=== PATIENT | female | born 1985 | race Caucasian/White ===

== ENCOUNTER 2019-03-14 06:26 | Day surgery (SDC) | payer MEDICAID ==
[~2019-03-14] VITALS: Ht 160 cm; Wt 85.1 kg
[~2019-03-14 06:26] MED LIST: IBUP-1986 PO; ONDA4TAB12 PO
[2019-03-14 06:34] VITALS: BP 134/98
[2019-03-14] MEDS ORDERED: OMEP20CA11 PO (06:37)
[2019-03-14] MEDS ORDERED: PROM25TA14 PO (06:38)
[2019-03-14] MEDS ORDERED: ONDA8TAB6 PO (06:38)
[2019-03-14] MEDS ORDERED: fentaNYL/PF 50MCG/1 ML 2ML syringe ONE (06:48)
[2019-03-14] MEDS ORDERED: MIDAZolam 5mg/5ml vial ONE (06:49)
[2019-03-14] MEDS ORDERED: LIDOcaine Viscous 15ml cup ONE (06:49)
[2019-03-14 08:19] VITALS: BP 138/63
[2019-03-14 08:29] VITALS: BP 110/70
[2019-03-14 08:39] VITALS: BP 105/57
[2019-03-14 08:49] VITALS: BP 140/85
== END 2019-03-14 09:00 | disposition home or self-care (01) ==
LOC: GI LAB 06:26
PROVIDERS: ATTEND Internal Medicine Gastroenterology
DX: K29.50 Unspecified chronic gastritis without bleeding (principal); Z88.8 Allergy status to other drugs, medicaments and biological substances; Z87.891 Personal history of nicotine dependence
CPT/HCPCS: 43239; 99152; J2250; J3010; J7040; A4620

== ENCOUNTER 2022-01-13 15:44 | Emergency (ER) | payer MEDICAID ==
[~2022-01-13] VITALS: Ht 160 cm; Wt 95.5 kg
[~2022-01-13 15:44] MED LIST changes: -IBUP-1986 PO; +OMEP20CA15 PO; -ONDA4TAB12 PO; +ONDA8TAB6 PO; +PROM25TA14 PO
[2022-01-13 16:33] LABS: BASOPHILS % (AUTO) 0.7 % (0-1); EOSINOPHILS # (AUTO) 0.2 X10'3 (0-0.9); EOSINOPHILS % (AUTO) 2.5 % (0-6); HEMATOCRIT 37.9 % (35.0-45.0); HEMOGLOBIN 12.6 g/dl (12.0-16.0); LYMPHOCYTES % (AUTO) 15.2 % (21-51); MEAN CORPUSCULAR HGB CONC 33.2 g/dL (33.0-36.5); MEAN CORPUSCULAR VOLUME 90.4 FL (78-98); MONOCYTES # (AUTO) 0.5 X10'3 (0-0.9); MONOCYTES % (AUTO) 7.8 % (2-12); NEUTROPHILS # (AUTO) 4.8 X10'3 (1.8-7.7); NEUTROPHILS % (AUTO) 73.8 % (42-75); PLATELET COUNT 182 X10'3 (140-440); RED CELL DISTRIBUTION WIDTH 12.3 % (11.5-14.5); WHITE BLOOD COUNT 6.5 X10'3 (4.5-11.0)
[2022-01-13 16:46] LABS: ALANINE AMINOTRANSFERASE 173 U/L (12-78); ALBUMIN 3.4 G/DL (3.4-5.0); ALBUMIN/GLOBULIN RATIO 1.1 (1.1-1.5); ALKALINE PHOSPHATASE 89 IU/L (46-116); ANION GAP 4 (8-16); ASPARTATE AMINO TRANSFERASE 91 U/L (10-37); BILIRUBIN,TOTAL 0.2 MG/DL (0.1-1.0); BLOOD UREA NITROGEN 15 MG/DL (7-18); BUN/CREATININE RATIO 16.9 (6.6-38.0); CALCIUM 8.7 MG/DL (8.5-10.1); CHLORIDE 109 MMOL/L (99-107); CREATININE 0.89 MG/DL (0.40-0.90); GLUCOSE 101 MG/DL (70-104); POTASSIUM 4.4 MMOL/L (3.5-5.1); SODIUM 144 MMOL/L (135-145); TOTAL CARBON DIOXIDE 30.9 MMOL/L (24-32); TOTAL PROTEIN 6.5 G/DL (6.4-8.2); eGFR 72 ML/MIN
[2022-01-13 17:00] LABS: CLARITY,URINE CLOUDY (Clear); COLOR,URINE YELLOW (Yellow); GLUCOSE, URINE NEGATIVE (Neg); KETONES,URINE NEGATIVE (Neg); LEUKOCYTE ESTERASE ,URINE TRACE (Neg); NITRITES, URINE NEGATIVE (Neg); OCCULT BLOOD,URINE NEGATIVE (Neg); PH,URINE 7.5 (4.8-8.0); PROTEIN,URINE NEGATIVE (Neg); URINE HCG NEGATIVE (NEG); UROBILINOGEN,URINE 0.2 E.U/dL (0.2-1.0)
[2022-01-13 17:07] LABS: UA COLLECTION TYPE CLN CATCH MIDSTREAM
[2022-01-13 17:17] LABS: AMORPHOUS PHOSPHATES 3+; SQUAMOUS EPITHELIAL CELL,UR MANY /LPF (FEW)
[2022-01-13 17:19] LABS: RBC,URINE NONE SEEN /HPF (0-2)
[2022-01-13 17:21] LABS: BACTERIA,URINE NONE SEEN /HPF (Neg); WBC,URINE 0-4 /HPF (0-4)
[2022-01-13] MEDS ORDERED: POTASSIUM BICARB 20meq eff tab 20 MEQ TABLET.EFF PO ONE (20:05)
[2022-01-13] MEDS ORDERED: furosemide 20MG tablet PO ONE (20:05)
[2022-01-13 20:30] VITALS: BP 138/88
== END 2022-01-13 20:33 | disposition home or self-care (01) ==
LOC: ER 15:44
DX: R60.0 Localized edema (principal); R63.5 Abnormal weight gain; Z88.1 Allergy status to other antibiotic agents; Z79.899 Other long term (current) drug therapy
CPT/HCPCS: 36415; 71045; 80053; 81001; 81025; 83880; 84439; 84443; 84484; 85025; 93005; 99285

== ENCOUNTER 2022-02-03 09:24 | Emergency (ER) | payer MEDICAID, OTHER ==
[2022-02-03] VITALS (11 sets, daily range): BP systolic 127–164; BP diastolic 70–101
[~2022-02-03] VITALS: Ht 160 cm; Wt 97.7 kg
[2022-02-03 09:54] LABS: BASOPHILS % (AUTO) 0.9 % (0-1); EOSINOPHILS # (AUTO) 0.3 X10'3 (0-0.9); EOSINOPHILS % (AUTO) 5.7 % (0-6); HEMATOCRIT 40.4 % (35.0-45.0); HEMOGLOBIN 13.5 g/dl (12.0-16.0); LYMPHOCYTES # (AUTO) 1.3 X10'3 (1.1-4.8); MEAN CORPUSCULAR HGB CONC 33.5 g/dL (33.0-36.5); MEAN CORPUSCULAR VOLUME 89.7 FL (78-98); MONOCYTES # (AUTO) 0.4 X10'3 (0-0.9); MONOCYTES % (AUTO) 7.6 % (2-12); NEUTROPHILS # (AUTO) 3.1 X10'3 (1.8-7.7); NEUTROPHILS % (AUTO) 60.8 % (42-75); PLATELET COUNT 190 X10'3 (140-440); RED CELL DISTRIBUTION WIDTH 12.7 % (11.5-14.5); WHITE BLOOD COUNT 5.2 X10'3 (4.5-11.0)
[2022-02-03 10:10] LABS: ALANINE AMINOTRANSFERASE 41 U/L (12-78); ALBUMIN 3.9 G/DL (3.4-5.0); ALBUMIN/GLOBULIN RATIO 1.3 (1.1-1.5); ALKALINE PHOSPHATASE 75 IU/L (46-116); ANION GAP 9 (8-16); ASPARTATE AMINO TRANSFERASE 24 U/L (10-37); BILIRUBIN,TOTAL 0.5 MG/DL (0.1-1.0); BLOOD UREA NITROGEN 15 MG/DL (7-18); BUN/CREATININE RATIO 15.6 (6.6-38.0); CALCIUM 8.6 MG/DL (8.5-10.1); CHLORIDE 107 MMOL/L (99-107); CREATININE 0.96 MG/DL (0.40-0.90); GLUCOSE 96 MG/DL (70-104); LIPASE 111 U/L (73-393); SODIUM 145 MMOL/L (135-145); TOTAL CARBON DIOXIDE 29.4 MMOL/L (24-32); TOTAL PROTEIN 6.9 G/DL (6.4-8.2); eGFR 66 ML/MIN
[2022-02-03 10:12] LABS: POTASSIUM 4.8 MMOL/L (3.5-5.1)
[2022-02-03] MEDS ORDERED: ondansetron/PF 4mg/2ml inj IV PRN ×2 (12:10→15:10)
[2022-02-03] MEDS ORDERED: HYDROcodone/acetaminophen 10/325mg tab PO PRN (12:10)
[2022-02-03] MEDS ORDERED: acetaminophen 325mg tablet PO PRN ×2 (12:10)
[2022-02-03] MEDS ORDERED: normal saline 1000ml 1,000 ML IV SCH (12:10)
[2022-02-03] MEDS ORDERED: HYDROcodone/acetaminophen 5mg/325mg tablet PO PRN (12:10)
[2022-02-03] MEDS ORDERED: magnesium Cl slow-release 64mg tablet PO PRN (12:10)
[2022-02-03] MEDS ORDERED: potassium CL 10mEq/100ml bag 100 ML IV PRN (12:10)
[2022-02-03] MEDS ORDERED: morphine 2 MG/ML inj. syringe IV PRN ×3 (12:10→15:10)
[2022-02-03] MEDS ORDERED: magnesium 2GM in 50ml NS 50 ML IV PRN (12:10)
[2022-02-03] MEDS ORDERED: POTASSIUM BICARB 20meq eff tab 20 MEQ TABLET.EFF PO PRN ×2 (12:10)
[2022-02-03] MEDS ORDERED: magnesium hydroxide 30ml (MOM) UD suspension PO PRN (12:10)
[2022-02-03] MEDS ORDERED: magnesium 4gm in 100ml NS 100 ML IV PRN (12:10)
[2022-02-03] MEDS ORDERED: mag hydrox/Alum hydrox/simeth 30ml oral suspension PO PRN (12:10)
[2022-02-03] MEDS ORDERED: piperacillin/tazo 3.375gm/50ml 50 ML IV SCH ×2 (12:16→12:19)
[2022-02-03] MEDS ORDERED: NO HOME MEDS (13:17)
[2022-02-03 13:27] LABS: URINE HCG NEGATIVE (NEG)
[2022-02-03 13:29] LABS: CLARITY,URINE CLEAR (Clear); COLOR,URINE YELLOW (Yellow); GLUCOSE, URINE NEGATIVE (Neg); KETONES,URINE NEGATIVE (Neg); LEUKOCYTE ESTERASE ,URINE NEGATIVE (Neg); NITRITES, URINE NEGATIVE (Neg); OCCULT BLOOD,URINE SMALL (Neg); PH,URINE 6.5 (4.8-8.0); PROTEIN,URINE NEGATIVE (Neg); UROBILINOGEN,URINE 0.2 E.U/dL (0.2-1.0)
[2022-02-03 13:30] LABS: UA COLLECTION TYPE CLN CATCH MIDSTREAM
[2022-02-03 13:36] LABS: BACTERIA,URINE FEW /HPF (Neg); SQUAMOUS EPITHELIAL CELL,UR FEW /LPF (FEW); WBC,URINE 0-4 /HPF (0-4)
[2022-02-03] MEDS ORDERED: INDOCYANINE GREEN 25 MG/10 ML VIAL IV STA (13:49)
[2022-02-03] MEDS ORDERED: ceFAZolin 2gm in dextrose, iso 100 ML IV ONE (13:50)
[2022-02-03] MEDS ORDERED: ringers solution, lacted 1,000 ML IV SCH ×2 (13:50→15:10)
--- NOTE | 2022-02-03 14:24 | NUR ---
Richar moore from pharmacy as surgery was picking up the patient, given to Dean SOFTWARE APPLICATIONS SPECIALIST. Recovery made aware.
[2022-02-03] MEDS ORDERED: LIDOcaine 1% 30ml preserv. free vial ONE (15:04)
[2022-02-03] MEDS ORDERED: BUPIVAcaine 0.5% inj/PF 30 ML ONE (15:04)
[2022-02-03] MEDS ORDERED: morphine 4 MG/ML inj SYRINge IV PRN (15:10)
[2022-02-03] MEDS ORDERED: meperidine/PF 25mg/ml syringe IV PRN ×3 (15:10)
[2022-02-03] MEDS ORDERED: proCHLORperazine 10 MG/2 ml inj IV PRN (15:10)
[2022-02-03] MEDS ORDERED: fentaNYL/PF 50MCG/1 ML 2ML syringe ONE (15:18)
[2022-02-03] MEDS ORDERED: midazolam 1 mg/ML 2ml injection ONE (15:18)
[2022-02-03] MEDS ORDERED: rocuronium 10mg/ml inj IV ONE (15:19)
[2022-02-03] MEDS ORDERED: propofol inj 20 ML IV ONE (15:19)
[2022-02-03] MEDS ORDERED: sevoflurane 250ml liquid IH ONE (15:32)
[2022-02-03] MEDS ORDERED: BUPIVAcaine 0.5% inj/PF 30 ml vial IJ ONE (16:14)
[2022-02-03] MEDS ORDERED: dexamethasone sod phosphate 4mg/ml inj. ONE (16:27)
[2022-02-03] MEDS ORDERED: ondansetron/PF 4mg/2ml inj ONE (16:27)
[2022-02-03] MEDS ORDERED: glycopyrrolate 0.2mg/ml inj ONE (16:31)
[2022-02-03] MEDS ORDERED: neostigmine methylsulfate 1 MG/ML 10ml vial ONE (16:31)
[2022-02-03] MEDS ORDERED: oxyCODONE/APAP 5-325mg tablet PO PRN (16:50)
--- NOTE | 2022-02-03 16:50 | NUR ---
PT ARRIVED TO [facility] VIA [facility] ACCOMPANIED BY DR. AGUILAR- ANESTHESIA REPORT GIVEN, PT PAINFUL AWAKE, VSS, DR AGUILAR GIVING PT PAIN MEDS AT PRESENT TO HELP WITH DISCOMFORT, LAP SITES X 4-CDI, SCDS ON, PIV 20G- L A/C
[2022-02-03] MEDS ORDERED: oxyCODONE/APAP 5-325mg tablet PO ONE (18:05)
--- NOTE | 2022-02-03 18:50 | NUR ---
PT UP AND DRESSED WAITING FOR RIDE, PERCOCET GIVEN FOR PAIN, PAIN AND BP BETTER AFTER GETTING UP TO GO TO THE BATHROOM, LAP SITES X 4-CDI, VSS, NO N/V, SCDS OFF, PIV D/CD CANULA INTACT, D/C INSTRUCTIONS GIVEN TO PT-ALL QUESTIONS ANSWERED, PT TAKEN VIA W/C WITH ALL BELONGINGS TO VEHICLE FOR TRANSPORT HOME.
[2022-02-03] MEDS ORDERED: K and/or MAG REPLACEMENT MC SCH (20:00)
[2022-02-03] MEDS ORDERED: heparin, porcine 5000 units/ml vial SQ SCH (20:00)
[2022-02-03] MEDS ORDERED: temazepam 15mg capsule PO PRN (21:00)
== END 2022-02-03 18:50 | disposition home or self-care (01) ==
LOC: ER 09:26 → UNDOADMIN 12:12 → ED HOLD 12:12 → UNDODISIN 18:50 → ER 18:50
DX: K81.0 Acute cholecystitis (principal); Z20.822 Contact with and (suspected) exposure to COVID-19; Z88.8 Allergy status to other drugs, medicaments and biological substances
CPT/HCPCS: 36415; 47562; 71045; 80053; 81001; 81025; 83605; 83690; 85025; 85610; 87040; 87811; 96365; 96366; 96375; 99285; J1100; J2250; J2270; J2405; J2543; J2704; J2710; J3010; J3490; J7030; J7120; S0020; Z7506; Z7508; Z7512; 96361; A4215; A4618; A7000; G0378

== ENCOUNTER 2022-02-26 00:32 | Emergency (ER) | payer OTHER ==
[~2022-02-26] VITALS: Ht 160 cm; Wt 95.5 kg
[~2022-02-26 00:32] MED LIST changes: +NO HOME MEDS; -OMEP20CA15 PO; -ONDA8TAB6 PO; -PROM25TA14 PO
[2022-02-26] MEDS ORDERED: albuterol 2.5 MG/3 ML nebule CONTNEB PRN (00:45)
[2022-02-26] MEDS ORDERED: dexamethasone 4mg tablet PO ONE (00:45)
[2022-02-26] MEDS ORDERED: dexamethasone sod phosphate 10mg/ml inj IV STA (00:48)
[2022-02-26] MEDS ORDERED: diphenhydrAMINE 50 mg/ml inj IV ONE (00:50)
[2022-02-26] MEDS ORDERED: ALB0.5UD IH (02:13)
[2022-02-26] MEDS ORDERED: PRED20TA PO (02:13)
[2022-02-26 03:06] VITALS: BP 148/98
== END 2022-02-26 03:10 | disposition home or self-care (01) ==
LOC: ER 00:33
DX: J45.909 Unspecified asthma, uncomplicated (principal); Z88.8 Allergy status to other drugs, medicaments and biological substances; Z87.891 Personal history of nicotine dependence
CPT/HCPCS: 94640; 94644; 96374; 96375; 99285; J1100; J1200; A7015

== ENCOUNTER 2024-05-27 18:43 | Emergency (ER) | payer MEDICAID ==
[~2024-05-27] VITALS: Ht 160 cm; Wt 83.6 kg
[2024-05-27 18:49] VITALS: TEMP 97.7
[2024-05-27 19:28] LABS: URINE HCG NEGATIVE (NEG)
[2024-05-27] MEDS: ondansetron/PF 4mg/2ml inj IV ONE (19:29)
[2024-05-27] MEDS: ketorolac trometh 30MG/ML vial 30 MG/ML VIAL IV ONE (19:29)
[2024-05-27] MEDS: HYDROmorphone 1 mg/ml syringe IV ONE (19:29)
[2024-05-27 19:30] LABS: BILIRUBIN,URINE NEGATIVE (Neg); CLARITY,URINE TURBID (Clear); COLOR,URINE AMBER (Yellow); GLUCOSE, URINE NEGATIVE (Neg); KETONES,URINE TRACE mg/dl (Neg); LEUKOCYTE ESTERASE ,URINE NEGATIVE (Neg); NITRITES, URINE NEGATIVE (Neg); OCCULT BLOOD,URINE LARGE (Neg); PH,URINE 5.5 (4.8-8.0); PROTEIN,URINE 30 mg/dl (Neg)
[2024-05-27 19:36] LABS: BASOPHILS # (AUTO) 0.1 X10'3 (0-0.2); BASOPHILS % (AUTO) 1.3 % (0-1); EOSINOPHILS # (AUTO) 0.1 X10'3 (0-0.9); EOSINOPHILS % (AUTO) 2.5 % (0-6); HEMATOCRIT 48.1 % (35.0-45.0); HEMOGLOBIN 16.2 g/dl (12.0-16.0); LYMPHOCYTES # (AUTO) 1.6 X10'3 (1.1-4.8); MEAN CORPUSCULAR HEMOGLOBIN 30.7 PG (27.0-31.0); MEAN CORPUSCULAR HGB CONC 33.7 g/dL (33.0-36.5); MEAN CORPUSCULAR VOLUME 91.3 FL (78-98); MEAN PLATELET VOLUME 8.3 FL (7.4-10.4); MONOCYTES # (AUTO) 0.4 X10'3 (0-0.9); MONOCYTES % (AUTO) 6.5 % (2-12); NEUTROPHILS # (AUTO) 3.7 X10'3 (1.8-7.7); NEUTROPHILS % (AUTO) 62.7 % (42-75); PLATELET COUNT 227 X10'3 (140-440); RED BLOOD COUNT 5.27 X10'6 (4.20-5.60); RED CELL DISTRIBUTION WIDTH 12.4 % (11.5-14.5); WHITE BLOOD COUNT 5.9 X10'3 (4.5-11.0)
[2024-05-27 19:40] LABS: UA COLLECTION TYPE CLN CATCH MIDSTREAM
[2024-05-27 19:50] LABS: ALANINE AMINOTRANSFERASE 30 U/L (12-78); ALBUMIN/GLOBULIN RATIO 1.4 (1.1-1.5); ALKALINE PHOSPHATASE 97 IU/L (46-116); ANION GAP 8 (8-16); ASPARTATE AMINO TRANSFERASE 25 U/L (10-37); BILIRUBIN,TOTAL 0.5 MG/DL (0.1-1.0); BLOOD UREA NITROGEN 15 MG/DL (7-18); BUN/CREATININE RATIO 12.2 (10.0-20.0); CALCIUM 9.8 MG/DL (8.5-10.1); CHLORIDE 100 MMOL/L (99-107); CREATININE 1.23 MG/DL (0.40-0.90); GLUCOSE 103 MG/DL (70-104); POTASSIUM 3.6 MMOL/L (3.5-5.1); SODIUM 136 MMOL/L (135-145); TOTAL CARBON DIOXIDE 28.3 MMOL/L (24-32); TOTAL PROTEIN 8.7 G/DL (6.4-8.2); eCRCL 51 ML/MIN; eGFR 49 ML/MIN
[2024-05-27] MEDS: piperacillin/tazo 3.375gm/50ml 50 ML IV SCH (19:50)
[2024-05-27] MEDS: normal saline 1000ml 1,000 ML IV ONE (19:50)
[2024-05-27 20:08] LABS: BACTERIA,URINE FEW /HPF (Neg); MUCUS STRANDS FEW /LPF (Neg); RBC,URINE TNTC /HPF (0-2); SQUAMOUS EPITHELIAL CELL,UR MODERATE /LPF (FEW)
[2024-05-27 20:11] LABS: WBC,URINE 20-30 /HPF (0-4)
[2024-05-27] MEDS ORDERED: HYDR-3965 PO (21:07)
[2024-05-27] MEDS ORDERED: ONDA-243 PO (21:07)
[2024-05-27 21:34] VITALS: BP 160/82; PULSE 89; RESP 17; O2SAT 98
== END 2024-05-27 21:36 | disposition home or self-care (01) ==
LOC: ER 18:44
DX: N10 Acute pyelonephritis (principal); J45.909 Unspecified asthma, uncomplicated; Z88.1 Allergy status to other antibiotic agents; Z87.442 Personal history of urinary calculi
CPT/HCPCS: 36415; 74176; 80053; 81001; 81025; 83605; 85025; 87040; 87088; 96365; 96366; 96375; 99285; J1171; J1885; J2405; J2543; J7030

== ENCOUNTER 2024-06-03 11:06 | Emergency (ER) | payer MEDICAID ==
[~2024-06-03] VITALS: Ht 160 cm; Wt 82.4 kg
[~2024-06-03 11:06] MED LIST changes: +HYDR-3965 PO; +ONDA-243 PO
[2024-06-03 11:38] LABS: URINE HCG NEGATIVE (NEG)
[2024-06-03 11:39] LABS: BILIRUBIN,URINE NEGATIVE (Neg); COLOR,URINE YELLOW (Yellow); GLUCOSE, URINE NEGATIVE (Neg); KETONES,URINE NEGATIVE (Neg); LEUKOCYTE ESTERASE ,URINE NEGATIVE (Neg); NITRITES, URINE NEGATIVE (Neg); OCCULT BLOOD,URINE NEGATIVE (Neg); PROTEIN,URINE NEGATIVE (Neg); UROBILINOGEN,URINE 0.2 E.U/dL (0.2-1.0)
[2024-06-03 11:46] LABS: CLARITY,URINE SLIGHTLY CLOUDY (Clear); UA COLLECTION TYPE CLN CATCH MIDSTREAM
[2024-06-03 11:47] LABS: BACTERIA,URINE FEW /HPF (Neg); MUCUS STRANDS MODERATE /LPF (Neg); SQUAMOUS EPITHELIAL CELL,UR MANY /LPF (FEW); WBC,URINE 0-4 /HPF (0-4)
[2024-06-03 12:41] LABS: BASOPHILS % (AUTO) 0.5 % (0-1); EOSINOPHILS # (AUTO) 0.1 X10'3 (0-0.9); EOSINOPHILS % (AUTO) 1.6 % (0-6); HEMATOCRIT 42.2 % (35.0-45.0); HEMOGLOBIN 14.4 g/dl (12.0-16.0); LYMPHOCYTES # (AUTO) 1.3 X10'3 (1.1-4.8); LYMPHOCYTES % (AUTO) 25.5 % (21-51); MEAN CORPUSCULAR HEMOGLOBIN 31.4 PG (27.0-31.0); MEAN CORPUSCULAR HGB CONC 34.3 g/dL (33.0-36.5); MEAN CORPUSCULAR VOLUME 91.7 FL (78-98); MEAN PLATELET VOLUME 8.7 FL (7.4-10.4); MONOCYTES # (AUTO) 0.3 X10'3 (0-0.9); NEUTROPHILS # (AUTO) 3.3 X10'3 (1.8-7.7); NEUTROPHILS % (AUTO) 65.4 % (42-75); PLATELET COUNT 201 X10'3 (140-440); RED CELL DISTRIBUTION WIDTH 12.3 % (11.5-14.5)
[2024-06-03 12:50] LABS: ALANINE AMINOTRANSFERASE 28 U/L (12-78); ALBUMIN 4.1 G/DL (3.4-5.0); ALBUMIN/GLOBULIN RATIO 1.4 (1.1-1.5); ALKALINE PHOSPHATASE 69 IU/L (46-116); ANION GAP 5 (8-16); ASPARTATE AMINO TRANSFERASE 23 U/L (10-37); BILIRUBIN,TOTAL 0.6 MG/DL (0.1-1.0); BLOOD UREA NITROGEN 11 MG/DL (7-18); BUN/CREATININE RATIO 9.9 (10.0-20.0); CALCIUM 8.9 MG/DL (8.5-10.1); CHLORIDE 103 MMOL/L (99-107); CREATININE 1.11 MG/DL (0.40-0.90); GLUCOSE 126 MG/DL (70-104); POTASSIUM 3.5 MMOL/L (3.5-5.1); SODIUM 139 MMOL/L (135-145); TOTAL CARBON DIOXIDE 30.8 MMOL/L (24-32); TOTAL PROTEIN 7.1 G/DL (6.4-8.2); eCRCL 57 ML/MIN; eGFR 55 ML/MIN
[2024-06-03] MEDS ORDERED: CEPH-585 PO (13:02)
[2024-06-03] MEDS ORDERED: HYDR-3965 PO (13:17)
[2024-06-03 13:21] VITALS: BP 151/96; PULSE 92; RESP 16; TEMP 97.9; O2SAT 98
== END 2024-06-03 13:23 | disposition home or self-care (01) ==
LOC: ER 11:06
DX: N23 Unspecified renal colic (principal); J45.909 Unspecified asthma, uncomplicated; Z88.1 Allergy status to other antibiotic agents; Z88.5 Allergy status to narcotic agent
CPT/HCPCS: 36415; 80053; 81001; 81025; 85025; 99283; J7030

== ENCOUNTER 2024-06-27 11:10 | Emergency (ER) | payer MEDICAID ==
[~2024-06-27] VITALS: Ht 167.6 cm; Wt 81.5 kg
[~2024-06-27 11:10] MED LIST changes: +CEPH-585 PO
[2024-06-27 11:46] LABS: URINE HCG NEGATIVE (NEG)
[2024-06-27 11:47] LABS: BILIRUBIN,URINE NEGATIVE (Neg); CLARITY,URINE SLIGHTLY CLOUDY (Clear); COLOR,URINE YELLOW (Yellow); GLUCOSE, URINE NEGATIVE (Neg); KETONES,URINE NEGATIVE (Neg); LEUKOCYTE ESTERASE ,URINE NEGATIVE (Neg); NITRITES, URINE NEGATIVE (Neg); OCCULT BLOOD,URINE LARGE (Neg); PROTEIN,URINE NEGATIVE (Neg); UROBILINOGEN,URINE 0.2 E.U/dL (0.2-1.0)
[2024-06-27 11:49] LABS: UA COLLECTION TYPE CLN CATCH MIDSTREAM
[2024-06-27 11:52] LABS: BACTERIA,URINE FEW /HPF (Neg); RBC,URINE TNTC /HPF (0-2); SQUAMOUS EPITHELIAL CELL,UR FEW /LPF (FEW); WBC,URINE 0-4 /HPF (0-4)
[2024-06-27 11:53] LABS: MUCUS STRANDS FEW /LPF (Neg)
[2024-06-27 12:13] LABS: BASOPHILS % (AUTO) 0.7 % (0-1); EOSINOPHILS # (AUTO) 0.1 X10'3 (0-0.9); EOSINOPHILS % (AUTO) 2.6 % (0-6); HEMOGLOBIN 13.3 g/dl (12.0-16.0); LYMPHOCYTES # (AUTO) 1.1 X10'3 (1.1-4.8); LYMPHOCYTES % (AUTO) 25.3 % (21-51); MEAN CORPUSCULAR HEMOGLOBIN 31.2 PG (27.0-31.0); MEAN CORPUSCULAR HGB CONC 34.1 g/dL (33.0-36.5); MEAN CORPUSCULAR VOLUME 91.3 FL (78-98); MEAN PLATELET VOLUME 8.3 FL (7.4-10.4); MONOCYTES # (AUTO) 0.3 X10'3 (0-0.9); MONOCYTES % (AUTO) 7.9 % (2-12); NEUTROPHILS # (AUTO) 2.7 X10'3 (1.8-7.7); NEUTROPHILS % (AUTO) 63.5 % (42-75); PLATELET COUNT 198 X10'3 (140-440); RED BLOOD COUNT 4.27 X10'6 (4.20-5.60); RED CELL DISTRIBUTION WIDTH 12.1 % (11.5-14.5); WHITE BLOOD COUNT 4.2 X10'3 (4.5-11.0)
[2024-06-27 12:24] LABS: ALANINE AMINOTRANSFERASE 29 U/L (12-78); ALBUMIN 4.2 G/DL (3.4-5.0); ALBUMIN/GLOBULIN RATIO 1.6 (1.1-1.5); ALKALINE PHOSPHATASE 68 IU/L (46-116); ANION GAP 6 (8-16); ASPARTATE AMINO TRANSFERASE 27 U/L (10-37); BILIRUBIN,TOTAL 0.4 MG/DL (0.1-1.0); BLOOD UREA NITROGEN 11 MG/DL (7-18); BUN/CREATININE RATIO 11.3 (10.0-20.0); CALCIUM 8.8 MG/DL (8.5-10.1); CHLORIDE 105 MMOL/L (99-107); CREATININE 0.97 MG/DL (0.40-0.90); GLUCOSE 100 MG/DL (70-104); LIPASE 46 U/L (16-77); SODIUM 140 MMOL/L (135-145); TOTAL CARBON DIOXIDE 29.3 MMOL/L (24-32); TOTAL PROTEIN 6.8 G/DL (6.4-8.2); eCRCL 74 ML/MIN; eGFR 64 ML/MIN
[2024-06-27] MEDS: morphine 4 MG/ML inj SYRINge IV ONE (14:46)
[2024-06-27] MEDS: normal saline 1000ML IV soln IVB ONE (14:46)
[2024-06-27] MEDS: ondansetron/PF 4mg/2ml inj IV ONE (14:46)
[2024-06-27] MEDS: ketorolac trometh 15mg/ml vial 15 MG/ML ML IV ONE (14:47)
[2024-06-27 15:03] VITALS: TEMP 98.2
[2024-06-27 16:05] VITALS: BP 164/95; PULSE 87; RESP 16; O2SAT 99
== END 2024-06-27 16:06 | disposition home or self-care (01) ==
LOC: ER 11:11
DX: R10.84 Generalized abdominal pain (principal); J45.909 Unspecified asthma, uncomplicated; Z88.1 Allergy status to other antibiotic agents
CPT/HCPCS: 36415; 80053; 81001; 81025; 83690; 85025; 96361; 96374; 96375; 99284; J1885; J2270; J2405; J7030

== ENCOUNTER 2025-08-12 11:30 | Emergency (ER) | payer BC, MEDICAID ==
[~2025-08-12] VITALS: Ht 160 cm; Wt 104.7 kg
[~2025-08-12 11:30] MED LIST changes: -CEPH-585 PO; -HYDR-3965 PO
[2025-08-12 11:33] VITALS: TEMP 97.9
--- NOTE | 2025-08-12 11:49 | Physician Documentation ---
History of Present Illness Chief Complaint: Flank Pain Stated Complaint: KIDNEY STONES Primary Medical Doctor: no pcp Source: patient Mode of Arrival: POV Exam Limitations: no limitations HPI 40-year-old female with history of kidney stones began to have urgency frequency and left flank pain for 2 days. Some blood in her urine. Nausea vomiting diarrhea. She states that her urine has been reddish brown for the past couple of days. Today the pain became extremely bad and while she was at work she was urged to go to the hospital. She also endorses some fevers that have been ongoing for the past couple of days. She took her temperature at work and it was about 100.2. Reports that she has a history of kidney stones. She denies any vomiting, cough, shortness of breath or any other associated symptoms. Medication Reconciliation Allergies: Coded Allergies: metronidazole (Verified Allergy, Severe, 08/12/25) Scheduled PRN ONDANSETRON ODT 4mg tablet (Ondansetron Odt), 1 TAB PO Q6H PRN PRN for nausea/vomiting Miscellaneous Medications Home Med List (No Home Medications), (Reported) Past Medical History Past Medical History: Asthma, [place] Past Surgical History: no surgical history Alcohol Use: None Drug Use: none Lives In: Home Review of Systems All Other Systems at this time: Reviewed and Negative Genitourinary: Reports: see HPI Physical Exam Vital Signs: RN Vital Signs have been reviewed: Yes, Temperature: 97.9, Source: Temporal, Heart Rate: 118, Respiratory Rate: 18, BP: 168/117, Pulse Oximetry: 100, Weight: 104.700 Oxygen Flow Rate: 0 Physical Exam I have reviewed the triage vitals. CONST: Well developed and well nourished. In no acute distress HENT: Head Atraumatic EYES: Pupils are equal, round and reactive to light. Normal conjunctiva NECK: Normal range of motion. Supple. CARDIO: Normal rate , tachycardic. No murmurs, rubs, or gallops. S1, S2. PULM/CHEST: No respiratory distress. Lungs clear to auscultation. No wheeze ABD: Soft and nontender. Nondistended. Bowel sounds normal. No guarding. Left-sided CVA tenderness : Exam deferred MSK: No edema. No deformity. NEURO: Alert and oriented to person, place and time. Moving all extremities SKIN: Warm and dry. PSYCH: Normal mood and affect. Good eye contact. Progress Results/Orders Reviewed/noted all lab results: Yes Results/Orders Orders - BEAU NEWMAN NP Ct Abdomen Pelvis (08/12/25 11:46) Vital Signs 08/12/25 11:33 Temp 97.9 Pulse 118 Resp 18 B/P (MAP) 168/117 Pulse Ox 100 O2 Flow Rate 0 EKG/XRAY/CT/US/VASC/MRI CT : Impression CLINICAL HISTORY: ABD PAIN TECHNIQUE: CT of the abdomen and pelvis was performed without intravenous contrast. This exam was performed according to our departmental dose optimization program. Up-to-date CT equipment and radiation dose reduction techniques are utilized as appropriate. CTDI: 35.68 DLP: 1870.59 WID: COMPARISON: CT CT ABDOMEN PELVIS on DOS: 05/27/24 the report FINDINGS: Lower Thorax: Normal-sized heart without pericardial effusion. The lung bases are clear. Liver and Biliary system: Prior cholecystectomy. Otherwise unremarkable. Spleen: Unremarkable. Adrenal Glands and Kidneys: Normal adrenal glands. Mild asymmetric atrophy and multifocal renal cortical scarring of the left kidney. Nonobstructing left renal calculi. No right nephrolithiasis. No hydronephrosis in either kidney. Pancreas and Retroperitoneum: Mildly atrophic pancreas. No retroperitoneal lymphadenopathy. Aorta and Major Vessels: Aortoiliac vessels are normal caliber Bowel, Mesentery and Peritoneal space: Normal caliber small and large bowel. Normal Appendix. There is mild wall thickening throughout the large bowel. There is mild colonic diverticulosis. No free air or fluid collection. Pelvis: Urinary bladder is mildly distended. Uterus and ovaries are grossly unremarkable. There is no pelvic lymphadenopathy. Abdominal wall and Osseous Structures: Tiny fat containing umbilical hernia. Tiny sclerotic foci in the proximal femurs and pelvis, likely bone islands. No destructive osseous lesion. IMPRESSION: 1. Mild wall thickening throughout the large bowel which may be in part due to underdistention versus mild infectious or inflammatory colitis. 2. Mild colonic diverticulosis. 3. Asymmetric atrophy and multifocal renal cortical scarring of the left kidney. 4. Tiny nonobstructing left renal calculi. Medical Decision Making Additional information obtaine: N/A Findings 1 Differential Dx:Considerations: Urinary obstruction, Urinary tract infection, Urolithiasis Additional Comments 40-year-old female presenting for a left renal calculus. This is likely cause of her pain. CT of the abdomen and pelvis did confirm this. Lab workup is otherwise grossly unremarkable. Urinalysis with just blood and squamous epithelial has been no sign of any infection. Patient was tachycardic and in pain initially. Was treated with Toradol 30 mg IV as well as acetaminophen 1000 mg IV with good improvement of symptoms. Also given 1 L of IV normal saline. On reassessment the patient improved. I discussed the findings with the patient. I advised her to drink plenty of fluids and monitor for passage of the stone. I will go ahead and prescribe her tamsulosin as well as ibuprofen and on all for pain control. Patient is to follow up with the primary care physician in the next 1-2 weeks for referral to Urology should her symptoms not improve. I advised her to monitor for passage of the stone. Return to the ED with any acutely worsening symptoms. All labs and imaging was reviewed by myself. All chronic medical conditions and social determinants of health considered. Departure Disposition: HOME / SELF CARE / HOMELESS Impression: Primary Impression: Calculus of kidney Condition: Improved Discharge Instructions: Kidney Stones Additional Instructions: Please take medication as prescribed. Drink plenty of fluids. Monitor for passage of stone. Follow up with PCP in the next 1-2 weeks for referral to Urology if your pain does not improve and he did not pass the stone. Return to ED with any acutely worsening symptoms. Referrals: NO PRIMARY CARE PROVIDER (PCP) Prescriptions Acetaminophen (Acetaminophen Extra Strength) 500 Mg Tablet 2 TAB PO Q8H PRN for pain for 10 Days, #60 TAB Prov: LEAH GALDAMEZ MD 08/12/25 Ibuprofen (Ibuprofen) 600 Mg Tablet 1 TAB PO Q8H for pain for 30 Days, #90 TAB 0 Refills with food Prov: LEAH GALDAMEZ MD 08/12/25 Signature Scribe Signature: 1 Attestation: The note accurately reflects work and decisions made by me.Leah Armenta MD 08/12/25 17:11 BEAU NEWMAN NP Aug 12, 2025 11:49 LEAH GALDAMEZ MD Aug 12, 2025 15:26
[2025-08-12 11:58] LABS: LEUKOCYTE ESTERASE ,URINE NEGATIVE (Neg); NITRITES, URINE NEGATIVE (Neg); OCCULT BLOOD,URINE MODERATE (Neg)
[2025-08-12 12:03] LABS: UA COLLECTION TYPE CLN CATCH MIDSTREAM; URINE HCG NEGATIVE (NEG)
[2025-08-12 12:05] LABS: SQUAMOUS EPITHELIAL CELL,UR MANY /LPF (FEW)
[2025-08-12 12:06] LABS: MUCUS STRANDS FEW /LPF (Neg)
[2025-08-12 12:39] LABS: MEAN PLATELET VOLUME 8.8 FL (7.4-10.4); RED CELL DISTRIBUTION WIDTH 12.1 % (11.5-14.5)
[2025-08-12 13:00] LABS: CREATININE 1.13 MG/DL (0.40-0.90); TOTAL CARBON DIOXIDE 24.2 MMOL/L (24-32); eCRCL 55 ML/MIN; eGFR 53 ML/MIN
--- NOTE | 2025-08-12 15:12 | RADIOLOGY REPORT ---
CLINICAL HISTORY: ABD PAIN TECHNIQUE: CT of the abdomen and pelvis was performed without intravenous contrast. This exam was performed according to our departmental dose optimization program. Up-to-date CT equipment and radiation dose reduction techniques are utilized as appropriate. CTDI: 35.68 DLP: 1870.59 WID: COMPARISON: CT CT ABDOMEN PELVIS on DOS: 05/27/24 the report FINDINGS: Lower Thorax: Normal-sized heart without pericardial effusion. The lung bases are clear. Liver and Biliary system: Prior cholecystectomy. Otherwise unremarkable. Spleen: Unremarkable. Adrenal Glands and Kidneys: Normal adrenal glands. Mild asymmetric atrophy and multifocal renal cortical scarring of the left kidney. Nonobstructing left renal calculi. No right nephrolithiasis. No hydronephrosis in either kidney. Pancreas and Retroperitoneum: Mildly atrophic pancreas. No retroperitoneal lymphadenopathy. Aorta and Major Vessels: Aortoiliac vessels are normal caliber Bowel, Mesentery and Peritoneal space: Normal caliber small and large bowel. Normal Appendix. There is mild wall thickening throughout the large bowel. There is mild colonic diverticulosis. No free air or fluid collection. Pelvis: Urinary bladder is mildly distended. Uterus and ovaries are grossly unremarkable. There is no pelvic lymphadenopathy. Abdominal wall and Osseous Structures: Tiny fat containing umbilical hernia. Tiny sclerotic foci in the proximal femurs and pelvis, likely bone islands. No destructive osseous lesion. IMPRESSION: 1. Mild wall thickening throughout the large bowel which may be in part due to underdistention versus mild infectious or inflammatory colitis. 2. Mild colonic diverticulosis. 3. Asymmetric atrophy and multifocal renal cortical scarring of the left kidney. 4. Tiny nonobstructing left renal calculi.
[2025-08-12] MEDS: normal saline 1000ml 1,000 ML IV ONE (15:54)
[2025-08-12] MEDS: ketorolac trometh 30MG/ML vial 30 MG/ML VIAL IV ONE (15:57)
[2025-08-12] MEDS ORDERED: HYDR-3965 PO (17:13)
[2025-08-12] MEDS ORDERED: IBUP600T52 PO (17:13)
[2025-08-12] MEDS ORDERED: ACET-2006 PO (17:18)
[2025-08-12] MEDS: acetaminophen 1,000mg/100ml IV 100 ML IV ONE (17:33)
[2025-08-12 17:50] VITALS: BP 166/78; PULSE 80; RESP 20; O2SAT 100
== END 2025-08-12 17:44 | disposition home or self-care (01) ==
LOC: ER 11:30
DX: R19.7 Diarrhea, unspecified (principal); N20.0 Calculus of kidney; Z87.442 Personal history of urinary calculi; Z88.1 Allergy status to other antibiotic agents
CPT/HCPCS: 36415; 74176; 80053; 81001; 81025; 83605; 83690; 84145; 85025; 87040; 96361; 96374; 96375; 99285; J0131; J1885; J7030